=== PATIENT | male | born 1960 | race American Indian/Alaskan Native ===

== ENCOUNTER 2016-08-29 07:20 | Day surgery (SDC) | payer OTHER ==
[2016-08-28 10:57] VITALS: BMI 32.3
[2016-08-29 08:01] LABS: ADD MANUAL DIFF? NO
[2016-08-29 08:04] LABS: BASO # 0.15 K/mm3 (0.0-2.0); BASO % 1.8 % (0.0-3.0); EOS # 0.5 (0.0-0.7); EOS % 5.6 % (1.5-5.0); GRAN # 3.01 (1.4-6.5); GRAN % 36.7 % (50.0-68.0); HEMATOCRIT 40.1 % (42.0-52.0); LYMPH # 4.1 (1.2-3.4); LYMPH % 50.1 % (22.0-35.0); MEAN CELL VOLUME 81.5 fL (80.0-105.0); MEAN CORPUSCULAR HEMOGLOBIN 27.6 pg (25.0-35.0); MEAN CORPUSCULAR HGB CONC 33.9 g/dl (31.0-37.0); MEAN PLATELET VOLUME 10.1 fl (7.0-11.0); MONO # 0.5 (0.1-0.6); MONO % 5.8 % (1.0-6.0); PLATELET COUNT 173 10^3/uL (120.0-450.0); RED CELL DISTRIBUTION WIDTH 15.6 % (11.5-14.5); WHITE BLOOD COUNT 8.2 10^3/ul (4.5-11.0)
[2016-08-29 08:14] LABS: CALCIUM 9.3 mg/dL (8.4-10.5); INR 1.03 (0.93-1.08); PARTIAL THROMBOPLASTIN TIME 27.3 Seconds (23.7-30.8); POTASSIUM 3.8 mmol/L (3.6-5.0)
[2016-08-29] MEDS ORDERED: Lidocaine 2% Inj (20ml) ONE (10:27)
[2016-08-29] MEDS ORDERED: Midazolam 2 MG/2 ML VIAL ONE ×2 (10:28→10:58)
[2016-08-29] MEDS ORDERED: Iodixanol 320 MG/ML 200 ML BOTTLE IV ONE (10:28)
[2016-08-29] MEDS ORDERED: Iodixanol 320 MG/ML 100 ML BOTTLE IV ONE ×2 (10:28→11:27)
--- NOTE | 2016-08-29 12:56 | CARDCATH ---
PROCEDURE DATE: 08/29/2016 HISTORY: The patient is a 56-year-old male with multiple cardiac risk factors including smoking. He is status post multivessel percutaneous transluminal coronary angioplasty and stent in the past. Th e patient presents with chest pain with abnormal stress test. A cardiac catheterization was recommen ded. PROCEDURE: Left heart catheterization with coronary arteriography and left ventriculogram. This was followed by PTCA and stent of a 90% ramus intermedius. The right femoral artery was cannulated with a 6-Thai sheath. There were no complications. Findings on catheterization revealed a left ventricle that contracted normally. Estimated ejection f raction is 55%. His coronary anatomy revealed a left dominant circulation. The RCA was diffusely diseased with 80% stenosis in the proximal portion. The vessel was a small ves philippe. The left main artery was unremarkable. The LAD revealed a patent stent in its proximal portion. The circumflex artery revealed a patent stent. The ramus intermedius revealed a 95% stenosis in its proximal portion extending to a 70% stenosis jus t distally. All of his coronary arteries have diffuse atherosclerosis. The patient was started on intravenous Angiomax. Under fluoroscopic guide, a 3.5 guiding catheter was placed in the ostium of the left main artery. A n 0.014 ATW wire was used to cross the critical lesion in the ramus intermedius. A 2.0 balloon was utilized to predilate the lesions. A 2.5 x 18 mm drug-eluting stent was placed and deployed at 14 atmospheres of pressure in the ramus i ntermedius tandem lesions. Repeat coronary angiography revealed an excellent result with no residual stenosis and MELISSA 3 flow. The patient tolerated the procedure well. Angio-Seal was used to close the femoral artery site. In summary, the procedure was successful PTCA and stent of a 95% ramus intermedius lesion. Cardiac catheterization reveals patent stents in the left anterior descending and circumflex artery. The patient has a critical lesion in the nondominant RCA which was not manipulated because of the sma ll vessel size. Given these findings, the patient will need to remain on aspirin indefinitely and Plavix for at least 1 year. I have discussed with him in serious terms about his need to stop smoking. Bennett Segura MD cc: [phone] TT: 08/29/2016 12:55:46 rn
[2016-08-29] MEDS: Sodium Chloride 0.9% 1,000 ML IV SCH ×2 (13:34→23:00)
--- NOTE | 2016-08-29 15:11 | CP.PCM.HP ---
<Mike Vera - Last Filed: 08/29/16 21:32> History of Present Illness - History of Present Illness History of Present Illness: HPI: Patient is a 56yo male with past medical history of CAD s/p 3 stent placement, [place] (2006), HLD and BPH that presented for an elective outpatient cardiac catherization. Patient is currently s/p successful cardiac catherization with ISELA stent placement of a 95% ramus intermedius lesion. On 02/2017, patient underwent a stress test which revealed a fixed, apical, inferior and inferolateral defects. An echocardiogram from 12/01/15 revealed an LVEF of ~43% with mild concenntric LVH and global hypokinesis of the left ventricle (see full report). Patient denied chest pain, palpitations, SOB, abdominal pain, nausea, vomiting, focal weakness, numbness and tingling post procedure. He was admitted for extended observation post catherization. 12 point ROS as per HPI above, otherwise negative PMHx: CAD, [place] (2006), HLD, BPH PSHx: 3 stent placement ([id number]) Allergies: Penicillin Meds: Reviewed and as per chart Family Hx: Mother: Colon Ca; Father: CAD, [place]; Sister: lymphoma Social Hx: Tobacco use (~1/2ppd for over 15 yrs), social alcohol use; denies illicit drugs; PMD: Dr. Hills Present on Admission - Present on Admission Any Indicators Present on Admission: No Past Patient History - Tetanus Immunizations Tetanus Immunization: Unknown - Past Medical History & Family History Past Medical History?: Yes - Past Social History Smoking Status: Former Smoker Chewing Tobacco Use: No - CARDIAC Hx Pacemaker: No - PULMONARY Hx Chronic Obstructive Pulmonary Disease (COPD): Yes - NEUROLOGICAL Hx Paralysis: No - HEENT Hx HEENT Problems: No - RENAL Hx Chronic Kidney Disease: No - ENDOCRINE/METABOLIC Hx Endocrine Disorders: No - HEMATOLOGICAL/ONCOLOGICAL Hx Blood Transfusions: No - INTEGUMENTARY Hx Dermatological Problems: No - MUSCULOSKELETAL/RHEUMATOLOGICAL Hx Musculoskeletal Disorders: No - GASTROINTESTINAL Hx Gastrointestinal Disorders: No - GENITOURINARY/GYNECOLOGICAL Hx Genitourinary Disorders: No Hx Prostate Problems: Yes - PSYCHIATRIC Hx Emotional Abuse: No Hx Physical Abuse: No Hx Substance Use: No - SURGICAL HISTORY Hx Surgeries: Yes - ANESTHESIA Hx Anesthesia Reactions: No Hx Malignant Hyperthermia: No Meds Allergies/Adverse Reactions: Allergies Allergy/AdvReac Type Severity Reaction Status Date / Time Penicillins Allergy RASH Verified 08/29/16 08:06 Physical Exam - Constitutional Appears: Well, Non-toxic, No Acute Distress - Head Exam Head Exam: ATRAUMATIC, NORMAL INSPECTION, NORMOCEPHALIC - Eye Exam Eye Exam: EOMI, PERRL. absent: Conjunctival injection, Scleral icterus - ENT Exam ENT Exam: Mucous Membranes Moist - Neck Exam Neck exam: Positive for: Normal Inspection - Respiratory Exam Respiratory Exam: Clear to Auscultation Bilateral, NORMAL BREATHING PATTERN. absent: Rales, Rhonchi, Wheezes - Cardiovascular Exam Cardiovascular Exam: RRR, +S1, +S2. absent: Gallop, JVD, Rubs - GI/Abdominal Exam GI & Abdominal Exam: Normal Bowel Sounds, Soft. absent: Distended, Guarding, Rebound, Rigid, Tenderness - Neurological Exam Neurological exam: Alert, Oriented x3 - Psychiatric Exam Psychiatric exam: Normal Affect, Normal Mood - Skin Skin Exam: Dry, Intact, Normal Color, Warm Results - Vital Signs Recent Vital Signs: Last Vital Signs Temp 97.5 F L 08/29/16 07:40 Pulse 60 08/29/16 14:50 Resp 17 08/29/16 14:50 BP 117/72 08/29/16 14:50 Pulse Ox 96 08/29/16 07:40 - Labs Result Diagrams: 08/29/16 07:50 08/29/16 07:50 Labs: Laboratory Results - last 24 hr 08/29/16 08/29/16 07:50 09:00 WBC 8.2 RBC 4.92 Hgb 13.6 L Hct 40.1 L MCV 81.5 MCH 27.6 MCHC 33.9 RDW 15.6 H Plt Count 173 MPV 10.1 Gran % 36.7 L Lymph % (Auto) 50.1 H [place] % (Auto) 5.8 Eos % (Auto) 5.6 H Baso % (Auto) 1.8 Gran # 3.01 Lymph # 4.1 H [place] # 0.5 Eos # 0.5 Baso # 0.15 PT 11.1 INR 1.03 APTT 27.3 Sodium 143 Potassium 3.8 Chloride 108 H Carbon Dioxide 24 Anion Gap 15 BUN 17 Creatinine 1.5 H Est GFR ( Amer) 59 Est GFR (Non-Af Amer) 49 Random Glucose 111 H Calcium 9.3 Blood Type A POSITIVE Blood Type Confirm A POSITIVE Antibody Screen Negative BBK History Checked No verified bt Assessment & Plan - Assessment and Plan (Free Text) Assessment: 56yo male with history of CAD s/p 3 stent placement, [place] (2006), HTN, HLD and BPH admitted for extended observation s/p successful cardiac catherization with ISELA placement of a 95% ramus intermedius lesion. Plan: 1. CAD -s/p PTCA with 1 ISELA placed; cardiac cath report reviewed -Per cath report, patient has a critical lesion in the nondominant RCA which was not manipulated because of the small vessel size -EKG reviewed -Continue metoprolol, ASA, plavix -Cardiology following - Dr. Segura 2. Hyperlipidemia -Continue lipitor 3. BPH -Flomax on hold Case discussed with attending physician - Date & Time Date: 08/29/16 Time: 21:06 <John Mack - Last Filed: 09/25/16 10:46> Results - Vital Signs Recent Vital Signs: Last Vital Signs Temp 94.5 F L 08/30/16 12:00 Pulse 76 08/30/16 12:00 Resp 18 08/30/16 12:00 BP 135/70 08/30/16 12:00 Pulse Ox 96 08/30/16 05:34 - Labs Result Diagrams: 08/30/16 06:55 08/30/16 06:30 Attending/Attestation - Attestation I have personally seen and examined this patient.: Yes I have fully participated in the care of the patient.: Yes I have reviewed all pertinent clinical information: Yes Notes (Text): 09/25/16 10:46 Medial record note done by resident after patient personally seen and examined by me. I have reviewed the chart and agree that the record accurately reflects my personal evaluation, data review, and course for the patient.
--- NOTE | 2016-08-29 15:24 | CARD ---
APPROVED REPORT EKG Measurement Heart [id number] <Conclusion> Sinus bradycardia Inferior infarct, age undetermined LVH by voltage STTW changes
[2016-08-30 05:35] VITALS: O2SAT 96
[2016-08-30 07:19] LABS: ADD MANUAL DIFF? NO
[2016-08-30 07:24] LABS: BASO % 1.4 % (0.0-3.0); EOS # 0.3 (0.0-0.7); EOS % 4.5 % (1.5-5.0); HEMATOCRIT 39.9 % (42.0-52.0); LYMPH # 2.8 (1.2-3.4); LYMPH % 39.1 % (22.0-35.0); MEAN CELL VOLUME 81.3 fL (80.0-105.0); MEAN CORPUSCULAR HEMOGLOBIN 27.3 pg (25.0-35.0); MEAN CORPUSCULAR HGB CONC 33.6 g/dl (31.0-37.0); MEAN PLATELET VOLUME 10.7 fl (7.0-11.0); MONO # 0.4 (0.1-0.6); PLATELET COUNT 172 10^3/uL (120.0-450.0); RED CELL DISTRIBUTION WIDTH 15.4 % (11.5-14.5); WHITE BLOOD COUNT 7.1 10^3/ul (4.5-11.0)
[2016-08-30 07:40] LABS: BLOOD UREA NITROGEN 16 mg/dL (7-21); CALCIUM 8.8 mg/dL (8.4-10.5); CARBON DIOXIDE 23 mmol/L (21-33); CHLORIDE 108 mmol/L (98-107); GFR AFRICAN-AMERICAN > 60; GLUCOSE,RANDOM 102 mg/dL (70-110); POTASSIUM 4.1 mmol/L (3.6-5.0); SODIUM 139 mmol/L (132-148)
[2016-08-30] MEDS: Sodium Chloride 0.9% 1,000 ML IV SCH (08:15)
--- NOTE | 2016-08-30 09:36 | PN ---
DATE: 08/30/2016 The patient is chest pain free. Blood pressure is 122/72, the heart rate is in the 60s. NECK: Negative JVD. LUNGS: Without rales. HEART: Reveals S1, S2. EXTREMITIES: Without edema. The right groin site is stable. Hemoglobin is 13.4, BUN and creatinine are unremarkable. IMPRESSION: 1. Status post percutaneous transluminal coronary angioplasty and stent of the ramus intermedius with a drug-eluting stent. 2. Multivessel coronary artery disease. 3. Chronic obstructive pulmonary disease. 4. Hypercholesterolemia. 5. Hypertension. Given these findings, the patient is stable for discharge. Followup and instructions have been given to the patient in detail. I have discussed a smoke reduction program with the patient. The patient is agreeable to a nicotine patch. Followup and instructions have been given to the patient in detail. Bennett Segura MD cc: [phone] TT: 08/30/2016 09:36:23 Confirmation # [id number] Dictation # [id number] dana
--- NOTE | 2016-08-30 10:16 | CP.PCM.DIS ---
<Mike Vera - Last Filed: 08/30/16 11:18> Provider - Provider Attending physician: John Mack MD Primary care physician: Jose Hills MD Consults: Cardiology - Dr. Segura Time Spent in preparation of Discharge (in minutes): 30 Hospital Course - Lab Results Lab Results: Most Recent Lab Values WBC 7.1 10^3/ul (4.5-11.0) 08/30/16 06:55 RBC 4.91 10^6/uL (3.5-6.1) 08/30/16 06:55 Hgb 13.4 gm/dL (14.0-18.0) L 08/30/16 06:55 Hct 39.9 % (42.0-52.0) L 08/30/16 06:55 MCV 81.3 fL (80.0-105.0) 08/30/16 06:55 MCH 27.3 pg (25.0-35.0) 08/30/16 06:55 MCHC 33.6 g/dl (31.0-37.0) 08/30/16 06:55 RDW 15.4 % (11.5-14.5) H 08/30/16 06:55 Plt Count 172 10^3/uL (120.0-450.0) 08/30/16 06:55 MPV 10.7 fl (7.0-11.0) 08/30/16 06:55 Gran % 49.0 % (50.0-68.0) L 08/30/16 06:55 Lymph % (Auto) 39.1 % (22.0-35.0) H 08/30/16 06:55 [place] % (Auto) 6.0 % (1.0-6.0) 08/30/16 06:55 Eos % (Auto) 4.5 % (1.5-5.0) 08/30/16 06:55 Baso % (Auto) 1.4 % (0.0-3.0) 08/30/16 06:55 Gran # 3.50 (1.4-6.5) 08/30/16 06:55 Lymph # 2.8 (1.2-3.4) 08/30/16 06:55 [place] # 0.4 (0.1-0.6) 08/30/16 06:55 Eos # 0.3 (0.0-0.7) 08/30/16 06:55 Baso # 0.10 K/mm3 (0.0-2.0) 08/30/16 06:55 PT 11.1 Seconds (9.9-11.8) 08/29/16 07:50 INR 1.03 (0.93-1.08) 08/29/16 07:50 APTT 27.3 Seconds (23.7-30.8) 08/29/16 07:50 Sodium 139 mmol/L (132-148) 08/30/16 06:30 Potassium 4.1 mmol/L (3.6-5.0) 08/30/16 06:30 Chloride 108 mmol/L (98-107) H 08/30/16 06:30 Carbon Dioxide 23 mmol/L (21-33) 08/30/16 06:30 Anion Gap 12 (10-20) 08/30/16 06:30 BUN 16 mg/dL (7-21) 08/30/16 06:30 Creatinine 1.3 mg/dL (0.5-1.4) 08/30/16 06:30 Est GFR ( Amer) > 60 08/30/16 06:30 Est GFR (Non-Af Amer) 58 08/30/16 06:30 Random Glucose 102 mg/dL (70-110) 08/30/16 06:30 Calcium 8.8 mg/dL (8.4-10.5) 08/30/16 06:30 Blood Type A POSITIVE 08/29/16 07:50 Blood Type Confirm A POSITIVE 08/29/16 09:00 Antibody Screen Negative 08/29/16 07:50 BBK History Checked No verified bt 08/29/16 07:50 - Hospital Course Hospital Course: Patient is a 56yo male with past medical history of CAD s/p 3 stent placement, [place] (2007), HLD and BPH that presented for an elective outpatient cardiac catherization. Patient underwent a successful cardiac catherization with ISELA stent placement of a 95% ramus intermedius lesion. On 08/26/2016, patient underwent a stress test which revealed a fixed, apical, inferior and inferolateral defects. An echocardiogram from 12/01/15 revealed an LVEF of ~43% with mild concenntric LVH and global hypokinesis of the left ventricle (see full report). Patient denied chest pain, palpitations, SOB, abdominal pain, nausea, vomiting, focal weakness, numbness and tingling post procedure. He was admitted for extended observation post catherization. Patient had no post- operative complications and was instructed to follow up with his primary doctor , Dr. Hills within 1-2 weeks of discharge as well as his engravings polisher, Dr. Segura within 1-2 weeks of discharge. He was also instructed to fill any medications prescribed to him and take as directed. Patient expressed understanding, had all questions answered and was agreeable to discharge and follow up. - Date & Time of H&P Date of H&P: 08/29/16 Discharge Exam - Head Exam Head Exam: ATRAUMATIC, NORMAL INSPECTION, NORMOCEPHALIC - Eye Exam Eye Exam: EOMI, PERRL - Respiratory Exam Respiratory Exam: Clear to PA & Lateral, UNREMARKABLE. absent: Rales, Rhonchi, Wheezes - Cardiovascular Exam Cardiovascular Exam: RRR, +S1, +S2. absent: Diastolic murmur, Rubs, Systolic Murmur - GI/Abdominal Exam GI & Abdominal Exam: Normal Bowel Sounds, Soft. absent: Distended, Firm, Guarding, Rebound, Rigid, Tenderness - Extremities Exam Extremities exam: normal inspection - Neurological Exam Neurological exam: Alert, CN II-XII Intact, Normal Gait, Oriented x3 - Psychiatric Exam Psychiatric exam: Normal Affect, Normal Mood - Skin Skin Exam: Dry, Intact, Normal Color, Warm Discharge Plan - Discharge Medications Prescriptions: Nicotine 14 mg/24 hr [Nicotine Transdermal System] 1 patch TD DAILY #30 patch Pravastatin Sodium [Pravachol] 40 mg PO DAILY #30 tablet - Follow Up Plan Condition: GOOD Disposition: HOME/ ROUTINE Instructions: Angina (DC), Coronary Artery Disease (DC), Chest Pain (DC), How to Stop Smoking (DC), Cigarette Smoking and Your Health (GEN), Chronic Hypertension (DC), Heart Catheterization (DC), Coronary Intravascular Stent Placement (DC) Additional Instructions: 1. Follow up with your primary doctor, Dr. Hills within 1-2 weeks of discharge. 2. Follow up with your engravings polisher, Dr. Segura within 1-2 weeks of discharge. 3. Fill any medications prescribed to you and take as directed. 4. Return to the emergency room should your condition worsen or change in severity/quality. Referrals: Jose Hills MD [Primary Care Provider] - <John Mack - Last Filed: 09/25/16 10:47> Provider - Provider Attending physician: John Mack MD Primary care physician: Jose Hills MD Hospital Course - Lab Results Lab Results: Most Recent Lab Values WBC 7.1 10^3/ul (4.5-11.0) 08/30/16 06:55 RBC 4.91 10^6/uL (3.5-6.1) 08/30/16 06:55 Hgb 13.4 gm/dL (14.0-18.0) L 08/30/16 06:55 Hct 39.9 % (42.0-52.0) L 08/30/16 06:55 MCV 81.3 fL (80.0-105.0) 08/30/16 06:55 MCH 27.3 pg (25.0-35.0) 08/30/16 06:55 MCHC 33.6 g/dl (31.0-37.0) 08/30/16 06:55 RDW 15.4 % (11.5-14.5) H 08/30/16 06:55 Plt Count 172 10^3/uL (120.0-450.0) 08/30/16 06:55 MPV 10.7 fl (7.0-11.0) 08/30/16 06:55 Gran % 49.0 % (50.0-68.0) L 08/30/16 06:55 Lymph % (Auto) 39.1 % (22.0-35.0) H 08/30/16 06:55 [place] % (Auto) 6.0 % (1.0-6.0) 08/30/16 06:55 Eos % (Auto) 4.5 % (1.5-5.0) 08/30/16 06:55 Baso % (Auto) 1.4 % (0.0-3.0) 08/30/16 06:55 Gran # 3.50 (1.4-6.5) 08/30/16 06:55 Lymph # 2.8 (1.2-3.4) 08/30/16 06:55 [place] # 0.4 (0.1-0.6) 08/30/16 06:55 Eos # 0.3 (0.0-0.7) 08/30/16 06:55 Baso # 0.10 K/mm3 (0.0-2.0) 08/30/16 06:55 PT 11.1 Seconds (9.9-11.8) 08/29/16 07:50 INR 1.03 (0.93-1.08) 08/29/16 07:50 APTT 27.3 Seconds (23.7-30.8) 08/29/16 07:50 Sodium 139 mmol/L (132-148) 08/30/16 06:30 Potassium 4.1 mmol/L (3.6-5.0) 08/30/16 06:30 Chloride 108 mmol/L (98-107) H 08/30/16 06:30 Carbon Dioxide 23 mmol/L (21-33) 08/30/16 06:30 Anion Gap 12 (10-20) 08/30/16 06:30 BUN 16 mg/dL (7-21) 08/30/16 06:30 Creatinine 1.3 mg/dL (0.5-1.4) 08/30/16 06:30 Est GFR ( Amer) > 60 08/30/16 06:30 Est GFR (Non-Af Amer) 58 08/30/16 06:30 Random Glucose 102 mg/dL (70-110) 08/30/16 06:30 Calcium 8.8 mg/dL (8.4-10.5) 08/30/16 06:30 Blood Type A POSITIVE 08/29/16 07:50 Blood Type Confirm A POSITIVE 08/29/16 09:00 Antibody Screen Negative 08/29/16 07:50 BBK History Checked No verified bt 08/29/16 07:50 Attending/Attestation - Attestation I have personally seen and examined this patient.: Yes I have fully participated in the care of the patient.: Yes I have reviewed all pertinent clinical information, including history, physical exam and plan: Yes Notes (Text): 09/25/16 10:47 Medial record note done by resident after patient personally seen and examined by me. I have reviewed the chart and agree that the record accurately reflects my personal evaluation, data review, and course for the patient.
[2016-08-30 12:01] VITALS: BP 135/70; PULSE 76; RESP 18; TEMP 94.5
== END 2016-08-30 12:03 | disposition home or self-care (01) ==
LOC: CATH 07:20 → 2RSO 12:03 → CATH 08-30 12:03
PROVIDERS: ATTEND Internal Medicine
DX: I25.10 Atherosclerotic heart disease of native coronary artery without angina pectoris (principal); E78.00 Pure hypercholesterolemia, unspecified; I10 Essential (primary) hypertension; J44.9 Chronic obstructive pulmonary disease, unspecified; R94.39 Abnormal result of other cardiovascular function study; R07.9 Chest pain, unspecified; N40.0 Benign prostatic hyperplasia without lower urinary tract symptoms; I25.2 Old myocardial infarction; Z95.5 Presence of coronary angioplasty implant and graft; Z88.0 Allergy status to penicillin; Z80.0 Family history of malignant neoplasm of digestive organs; Z80.7 Family history of other malignant neoplasms of lymphoid, hematopoietic and related tissues; Z82.49 Family history of ischemic heart disease and other diseases of the circulatory system; Z72.0 Tobacco use; E78.5 Hyperlipidemia, unspecified
CPT/HCPCS: 36415 ×2; 80048 ×2; 85025 ×2; 85610; 85730; 86850; 86900; 93005; 93458; 99152; C1725; C1760; C1769 ×2; C1874; C1887; C2629; C9600; J0583; J1644; J2250; J3010; J7040 ×3; Q9967

== ENCOUNTER 2017-09-30 12:22 | Observation (INO) | payer OTHER ==
[2017-09-30 12:34] VITALS: BMI 28.8
[2017-09-30] MEDS ORDERED: Nitroglycerin 2% Ointment Foilpak UD TOP STA (12:41)
[2017-09-30 12:54] LABS: BASO # 0.12 K/mm3 (0.0-2.0); BASO % 1.1 % (0.0-3.0); EOS # 0.4 (0.0-0.7); EOS % 3.8 % (1.5-5.0); GRAN # 4.11 (1.4-6.5); GRAN % 38.2 % (50.0-68.0); LYMPH # 5.6 (1.2-3.4); LYMPH % 51.5 % (22.0-35.0); MEAN CELL VOLUME 81.1 fl (80.0-105.0); MEAN CORPUSCULAR HEMOGLOBIN 27.5 pg (25.0-35.0); MEAN CORPUSCULAR HGB CONC 33.9 g/dl (31.0-37.0); MONO # 0.6 (0.1-0.6); MONO % 5.4 % (1.0-6.0); RBC 5.09 10^6/uL (3.5-6.1); RED CELL DISTRIBUTION WIDTH 15.1 % (11.5-14.5); WHITE BLOOD COUNT 10.8 10^3/ul (4.5-11.0)
[2017-09-30 13:07] LABS: BLOOD UREA NITROGEN 22 mg/dL (7-21); GFR NON-AFRICAN AMERICAN 53
[2017-09-30 13:08] LABS: ALB/GLOB RATIO 1.4 (1.1-1.8); ALBUMIN 4.5 g/dL (3.0-4.8); ALT/SGPT 31 U/L (7-56); AST/SGOT 26 U/L (17-59); CALCIUM 9.7 mg/dL (8.4-10.5); LIPASE 178 U/L (23-300)
[2017-09-30 13:18] LABS: TROPONIN I < 0.01 ng/mL
--- NOTE | 2017-09-30 13:22 | ED PDOC ---
Arrival/HPI - General Chief Complaint: Chest Pain Time Seen by Provider: 09/30/17 12:35 Historian: Patient - History of Present Illness Narrative History of Present Illness (Text): 09/30/17 13:19 A 57 year old male, whose past medical history includes CAD s/p 3 stent placement, [place] (2006), HLD and benign prostatic hyperplasia, presents to the emergency department complaining of chest pain that started at around 10 this morning. He states that the pain is still prevalent, but improving. He also complains of associated shortness of breath, which has resolved since. The patient notes that he took his Aspirin and Plavix this morning. The patient denies fevers, chills, headache, dizziness, diaphoresis, dyspnea on exertion, cough, abdominal pain, nausea, vomiting, diarrhea, back pain, neck pain, urinary /bowel changes, or any other complaint. PMD: Dr. Mack Time/Duration: Other (This Morning (10 AM)) Symptom Onset: Sudden Symptom Course: Improving Activities at Onset: Rest, Light Context: Home Past Medical History - Provider Review Nursing Documentation Reviewed: Yes - Tetanus Immunization Tetanus Immunization: Unknown - Cardiac Hx Cardiac Disorders: Yes Hx Hypertension: Yes Hx Pacemaker: No - Pulmonary Hx Chronic Obstructive Pulmonary Disease (COPD): Yes - Neurological Hx Paralysis: No - HEENT Hx HEENT Disorder: No - Renal Hx Renal Disorder: No - Endocrine/Metabolic Hx Endocrine Disorders: No - Hematological/Oncological Hx Blood Transfusions: No - Integumentary Hx Dermatological Disorder: No - Musculoskeletal/Rheumatological Hx Musculoskeletal Disorders: No - Gastrointestinal Hx Gastrointestinal Disorders: No - Genitourinary/Gynecological Hx Genitourinary Disorders: No Hx Prostate Problems: Yes - Psychiatric Hx Emotional Abuse: No Hx Physical Abuse: No Hx Substance Use: No - Surgical History Hx Cardiac Catheterization: Yes Hx Coronary Stent: Yes (x4) - Anesthesia Hx Anesthesia: Yes Hx Anesthesia Reactions: No Hx Malignant Hyperthermia: No - Suicidal Assessment Feels Threatened In Home Enviroment: No Family/Social History - Physician Review Nursing Documentation Reviewed: Yes Family/Social History: No Known Family HX Smoking Status: Former Smoker Hx Alcohol Use: Yes (OCCASIONAL) Hx Substance Use: No Allergies/Home Meds Allergies/Adverse Reactions: Allergies Penicillins Allergy (Verified 09/30/17 12:38) RASH Home Medications: Home Meds Medication Instructions Recorded Confirmed Clopidogrel [Plavix] 75 mg PO DAILY 08/26/16 09/30/17 Tamsulosin [Flomax] 0.4 mg PO DAILY 08/26/16 09/30/17 Aspirin [Ecotrin] 81 mg PO DAILY 08/28/16 09/30/17 Cholecalciferol (Vitamin D3) 2,000 unit PO DAILY 08/28/16 09/30/17 [Vitamin D3] [place]-3 Fatty Acids/Fish Oil [Fish 1,000 mg PO DAILY 08/28/16 09/30/17 Oil 1,000 mg Capsule] Metoprolol Tartrate 50 mg PO BID 09/30/17 09/30/17 Review of Systems - Physician Review All systems were reviewed & negative as marked: Yes - Review of Systems Constitutional: absent: Fevers, Night Sweats Respiratory: SOB. absent: Cough Cardiovascular: Chest Pain. absent: WHALEN Gastrointestinal: absent: Abdominal Pain, Stool Changes, Diarrhea, Nausea, Vomiting Genitourinary Male: absent: Urinary Output Changes Musculoskeletal: absent: Back Pain, Neck Pain Neurological: absent: Headache, Dizziness Physical Exam Vital Signs Reviewed: Yes Vital Signs Temp Pulse Resp BP Pulse Ox 09/30/17 12:44 97.7 F 76 17 125/72 98 Temperature: Afebrile Blood Pressure: Normal Pulse: Regular Respiratory Rate: Normal Appearance: Positive for: Well-Appearing, Non-Toxic, Comfortable Pain Distress: None Mental Status: Positive for: Alert and Oriented X 3 - Systems Exam Head: Present: Atraumatic, Normocephalic Pupils: Present: PERRL Extroacular Muscles: Present: EOMI Conjunctiva: Present: Normal Mouth: Present: Moist Mucous Membranes Neck: Present: Normal Range of Motion Respiratory/Chest: Present: Clear to Auscultation, Good Air Exchange. No: Respiratory Distress, Accessory Muscle Use Cardiovascular: Present: Regular Rate and Rhythm, Normal S1, S2. No: Murmurs Abdomen: No: Tenderness, Distention, Peritoneal Signs Back: Present: Normal Inspection Upper Extremity: Present: Normal Inspection. No: Cyanosis, Edema Lower Extremity: Present: Normal Inspection. No: Edema Neurological: Present: GCS=15, CN II-XII Intact, Speech Normal Skin: Present: Warm, Dry, Normal Color. No: Rashes Psychiatric: Present: Alert, Oriented x 3, Normal Insight, Normal Concentration Medical Decision Making ED Course and Treatment: 09/30/17 13:23 Impression: A 57 year old male presents to the emergency department for a complaint of chest pain with associated shortness of breath this morning. Plan: -- EKG -- Chest X-ray -- Labs -- Urinalysis -- Nitroglycerin -- Reassess and disposition Progress Notes: CHEST X-RAY Dictator : Brandan Bowers MD Report Date : 09/30/2017 13:24:02 IMPRESSION: No active disease. 09/30/17 13:39 EKG shows normal sinus rhythm rate approximately 70 with Q waves inferiorly and inverted T waves with Q waves laterally 09/30/17 14:44 Pain is better post-nitroglycerin. - Lab Interpretations Lab Results: 09/30/17 12:40 09/30/17 12:40 Lab Results 09/30/17 12:40: PT 12.4, INR 1.09 H, APTT 28.5 09/30/17 12:40: Sodium 147, Potassium 3.9, Chloride 109 H, Carbon Dioxide 24, Anion Gap 18, BUN 22 H, Creatinine 1.4, Est GFR ( Amer) > 60, Est GFR ( Non-Af Amer) 53, Random Glucose 121 H, Calcium 9.7, Magnesium 1.9, Total Bilirubin 0.3, AST 26, ALT 31, Alkaline Phosphatase 88, Lactate Dehydrogenase 460, Total Creatine Kinase 519 H, CK-MB (CK-2) 4.3 H, CK-MB (CK-2) % Cancelled, Troponin I < 0.01, Total Protein 7.7, Albumin 4.5, Globulin 3.2, Albumin/ Globulin Ratio 1.4, Lipase 178 09/30/17 12:40: WBC 10.8 D, RBC 5.09, Hgb 14.0, Hct 41.3 L, MCV 81.1, MCH 27.5 , MCHC 33.9, RDW 15.1 H, Plt Count 193, MPV 10.0, Gran % 38.2 L, Lymph % (Auto) 51.5 H, [place] % (Auto) 5.4, Eos % (Auto) 3.8, Baso % (Auto) 1.1, Gran # 4.11, Lymph # (Auto) 5.6 H, [place] # (Auto) 0.6, Eos # (Auto) 0.4, Baso # (Auto) 0.12 I have reviewed the lab results: Yes - RAD Interpretation Radiology Orders: 09/30/17 12:42 CHEST PORTABLE [RAD] Stat - EKG Interpretation Interpreted by ED Physician: Yes Type: 12 lead EKG - Medication Orders Current Medication Orders: Aspirin (Ecotrin) 81 mg PO DAILY DIONNA Cholecalciferol (Vitamin D) 2,000 intlu PO DAILY DIONNA Clopidogrel Bisulfate (Plavix) 75 mg PO DAILY DIONNA Enoxaparin Sodium (Lovenox) 100 mg SC Q12H DIONNA PRN Reason: Protocol Metoprolol Tartrate (Lopressor) 50 mg PO BID DIONNA [id number] Ethyl Esters (Lovaza) 1 gm PO DAILY DIONNA Tamsulosin HCl (Flomax) 0.4 mg PO DAILY DIONNA Discontinued Medications Nitroglycerin (Nitro-Bid 2% Oint) 1 ea TOP STAT STA Stop: 09/30/17 12:42 Last Admin: 09/30/17 13:06 Dose: 1 ea - Scribe Statement The provider has reviewed the documentation as recorded by the Kaylaibkelly Marshall Provider Scribe Attestation: All medical record entries made by the Scribe were at my direction and personally dictated by me. I have reviewed the chart and agree that the record accurately reflects my personal performance of the history, physical exam, medical decision making, and the department course for this patient. I have also personally directed, reviewed, and agree with the discharge instructions and disposition. Disposition/Present on Arrival - Present on Arrival Any Indicators Present on Arrival: No History of DVT/PE: No History of Uncontrolled Diabetes: No Urinary Catheter: No History of Decub. Ulcer: No History Surgical Site Infection Following: None - Disposition Have Diagnosis and Disposition been Completed?: Yes Diagnosis: Chest pain Disposition: HOSPITALIZED Disposition Time: 13:49 Patient Plan: Observation, Telemetry Patient Problems: Current Active Problems Problem Status Onset Chest pain Acute Condition: GOOD
[2017-09-30 13:24] LABS: CK-MB 4.3 ng/mL (0.0-3.6)
--- NOTE | 2017-09-30 13:25 | RAD ---
HISTORY: cp COMPARISON: 11/30/2015 FINDINGS: LUNGS: No active pulmonary disease. PLEURA: No significant pleural effusion identified, no pneumothorax apparent. CARDIOVASCULAR: Normal. OSSEOUS STRUCTURES: No significant abnormalities. VISUALIZED UPPER ABDOMEN: Normal. OTHER FINDINGS: None. IMPRESSION: No active disease.
[2017-09-30 13:38] LABS: INR 1.09 (0.93-1.08); PARTIAL THROMBOPLASTIN TIME 28.5 Seconds (25.1-36.5); PROTHROMBIN TIME 12.4 SECONDS (9.4-12.5)
--- NOTE | 2017-09-30 14:28 | CP.PCM.HP ---
<Joey Salas - Last Filed: 09/30/17 15:11> History of Present Illness - History of Present Illness History of Present Illness: 57 year old male with a past medical history significant for multivessel CAD ( with stent placement in LAD in 2006 and Ramus Intermedius in 08/2016) dyslipidemia, Benign Prostatic Hyperplasia, and a 15 pack year history of smoking (quit one year ago) who presents with substernal chest pain at 10:00 AM today. He reports the pain is pressure like, non-radiating, associated with some difficulty with air intake, without nausea or diapohoresis or worsened with exertion. He reports the pain occurred shortly after he lugged down his Aspirin, PLavix, Pravastatin, and Metoprolol all at once at 10:00. He reports he normally takes his medications after a meal but wasn't able to today. He reports that he drank more water after the chest pain developed, and some gingerale which did not exactly improve his symptoms. He reports the first time he had an VT he had similar symptoms and disregarded it to his regret ion 2006. In the ED, he reports that his chest pain subsided after the topical nitroglycerin patch was applied. He denies any fever, chills, diaphoresis, nausea, vomiting, alcohol, or illicit drug use. 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 John Mack Present on Admission - Present on Admission Any Indicators Present on Admission: No Review of Systems - Review of Systems All systems: reviewed and no additional remarkable complaints except (as per HPI ) Past Patient History - Tetanus Immunizations Tetanus Immunization: Unknown - Past Medical History & Family History Past Medical History?: Yes - Past Social History Smoking Status: Former Smoker - CARDIAC Hx Cardiac Disorders: Yes Hx Hypertension: Yes Hx Pacemaker: No - PULMONARY Hx Chronic Obstructive Pulmonary Disease (COPD): Yes - NEUROLOGICAL Hx Paralysis: No - HEENT Hx HEENT Problems: No - RENAL Hx Chronic Kidney Disease: No - ENDOCRINE/METABOLIC Hx Endocrine Disorders: No - HEMATOLOGICAL/ONCOLOGICAL Hx Blood Transfusions: No - INTEGUMENTARY Hx Dermatological Problems: No - MUSCULOSKELETAL/RHEUMATOLOGICAL Hx Musculoskeletal Disorders: No - GASTROINTESTINAL Hx Gastrointestinal Disorders: No - GENITOURINARY/GYNECOLOGICAL Hx Genitourinary Disorders: No Hx Prostate Problems: Yes - PSYCHIATRIC Hx Emotional Abuse: No Hx Physical Abuse: No Hx Substance Use: No - SURGICAL HISTORY Hx Cardiac Catheterization: Yes Hx Coronary Stent: Yes (x4) - ANESTHESIA Hx Anesthesia: Yes Hx Anesthesia Reactions: No Hx Malignant Hyperthermia: No Meds Allergies/Adverse Reactions: Allergies Allergy/AdvReac Type Severity Reaction Status Date / Time Penicillins Allergy RASH Verified 09/30/17 12:38 flu vaccine Allergy NAUSEA Uncoded 09/30/17 16:47 Physical Exam - Constitutional Appears: Non-toxic - Head Exam Head Exam: ATRAUMATIC, NORMOCEPHALIC - Eye Exam Eye Exam: EOMI, Normal appearance - ENT Exam ENT Exam: Mucous Membranes Moist - Neck Exam Neck exam: Positive for: Normal Inspection Additional comments: no carotid bruits auscultated - Respiratory Exam Respiratory Exam: NORMAL BREATHING PATTERN. absent: Accessory Muscle Use - Cardiovascular Exam Cardiovascular Exam: RRR, +S1, +S2 - GI/Abdominal Exam GI & Abdominal Exam: Normal Bowel Sounds, Soft. absent: Guarding - Extremities Exam Extremities exam: Positive for: normal inspection. Negative for: calf tenderness - Neurological Exam Neurological exam: Alert, CN II-XII Intact, Oriented x3 - Psychiatric Exam Psychiatric exam: Normal Affect, Normal Mood - Skin Skin Exam: Dry, Intact, Normal Color, Warm Results - Vital Signs Recent Vital Signs: Last Vital Signs Temp 97.7 F 09/30/17 12:44 Pulse 76 09/30/17 12:44 Resp 17 09/30/17 12:44 BP 125/72 09/30/17 12:44 Pulse Ox 98 09/30/17 12:44 - Labs Result Diagrams: 09/30/17 12:40 09/30/17 12:40 - EKG Data EKG Interpreted by: Myself - EKG Data EKG comments: no ST or T wave changes significant for acute VT; there is evidence of old infarct in the inferior and lateral leads. Assessment & Plan - Assessment and Plan (Free Text) Assessment: 57 year old male with a past medical history of CAD with stent placement, BPH, and history of smoking who presents with chest pain of two hours duration that improved with topical Nitroglycerin. Plan: 1) Unstable Angina in a patient with known CAD - Chest X-ray shows no acute disease - EKG shows old infarct in inferior and lateral leads - Lovenox 100 mg q12h SC - Dr. Segura, fulling machine operator consulted - TSH, Lipid panel, high sensitivity CRP, and HgA1c ordered - Troponin I ordered q6h - NPO after midnight except for medications - Metoprolol Tartarate 50 mg BID - Aspirin 81 mg - Plavix 75 PO daily - Patient already on Pravastatin, will check lipid panel and consider high intensity - Fish oil continue 2) CKD - Monitor with serial CMP/BMP - gentle hydration with NS 60 ml/hr 3) BPH - Tamsulosin 0.4 mg PO daily 4) GI/DVT prophylaxis - Famotidine 20 mg - Lovenox therapeutic dose Case reviewed and discussed with Dr. Gallardo, attending physician - Date & Time Date: 09/30/17 Time: 14:55 <Siva Gallardo - Last Filed: 10/01/17 14:37> Results - Vital Signs Recent Vital Signs: Last Vital Signs Temp 98.5 F 10/01/17 05:54 Pulse 61 10/01/17 09:19 Resp 18 10/01/17 09:00 BP 121/70 10/01/17 09:19 Pulse Ox 99 10/01/17 09:00 - Labs Result Diagrams: 09/30/17 12:40 09/30/17 12:40 Labs: Laboratory Results - last 24 hr 09/30/17 09/30/17 09/30/17 18:48 18:48 18:48 Hemoglobin A1c 5.9 Troponin I < 0.01 Triglycerides 201 H Cholesterol 186 LDL Cholesterol Direct 122 HDL Cholesterol 29 TSH 3rd Generation 2.03 Urine Color Urine Appearance Urine pH Ur Specific [place] Urine Protein Urine Glucose (UA) Urine Ketones Urine Blood Urine Nitrate Urine Bilirubin Urine Urobilinogen Ur Leukocyte Esterase 09/30/17 09/30/17 20:22 23:16 Hemoglobin A1c Troponin I < 0.01 Triglycerides Cholesterol LDL Cholesterol Direct HDL Cholesterol TSH 3rd Generation Urine Color Yellow Urine Appearance Clear Urine pH 6.0 Ur Specific [place] 1.015 Urine Protein Negative Urine Glucose (UA) Negative Urine Ketones Negative Urine Blood Negative Urine Nitrate Negative Urine Bilirubin Negative Urine Urobilinogen 0.2 Ur Leukocyte Esterase Negative Attending/Attestation - Attestation I have personally seen and examined this patient.: Yes I have fully participated in the care of the patient.: Yes I have reviewed all pertinent clinical information: Yes Notes (Text): 10/01/17 14:32 Medical record note made by the resident after discussion with my direction and input after the patient was personally seen and examined by me. I have reviewed the chart and agree that the record accurately reflects by personal performance of the history, physical exam, data review, and medical decision-making, in the course for the patient. I have also personally directed the plan of care. 57 year old male with a past medical history of CAD ,SP stent placement in LAD in 2006 and Ramus Intermedius in 08/2016) dyslipidemia, Benign Prostatic Hyperplasia, is admitted with chest pain, improved with topical nitropaste in ER.EKG is negative for any new changes compared to previous EKG.Patient is currently pain free.Patient will be admitted to the hospital in telemetry.We will continue ASA,Plavix, metoprolol and Paravastatin.We will get serial troponins and cardiology consult. Management plan was discussed in detail with patient. Education was provided.
--- NOTE | 2017-09-30 14:57 | CARD ---
APPROVED REPORT EKG Measurement Heart [id number] <Conclusion> Normal sinus rhythm Lateral infarct, age undetermined Inferior infarct, age undetermined Abnormal ECG
[2017-09-30] MEDS ORDERED: Sodium Chloride 0.9% 1,000 ML IV SCH (15:00)
[2017-09-30] MEDS: Enoxaparin 100 mg Syringe SC SCH (15:23)
[2017-09-30] MEDS ORDERED: Pneumococcal 23-Valent Vaccine IM ONE (17:10)
[2017-09-30 19:10] LABS: HDL CHOLESTEROL 29 mg/dL (29-60)
[2017-09-30 19:21] LABS: LDL CHOLESTEROL 122 mg/dL (0-129)
[2017-09-30 19:32] LABS: TROPONIN I < 0.01 ng/mL
[2017-09-30 20:42] LABS: URINE BILIRUBIN NEGATIVE (NEGATIVE); URINE BLOOD NEGATIVE (NEGATIVE); URINE GLUCOSE (UA) NEGATIVE (NEGATIVE); URINE LEUKOCYTE ESTERASE NEGATIVE Leu/uL (NEGATIVE); URINE PROTEIN NEGATIVE mg/dL (<30 mg/dL); URINE UROBILINOGEN 0.2 E.U./dL (<1 E.U./dL)
[2017-09-30 20:44] LABS: URINE APPEARANCE CLEAR (CLEAR); URINE COLOR YELLOW (YELLOW)
[2017-10-01] MEDS: Enoxaparin 100 mg Syringe SC SCH (02:48)
[2017-10-01 05:55] VITALS: TEMP 98.5; O2SAT 99
--- NOTE | 2017-10-01 08:20 | CP.PCM.PCO ---
Physician Communication Note - Physician Communication Note Physician Communication Note: Patient defers stress test today given left leg injury, prefers 10/03.
[2017-10-01] MEDS: Omega-3-Acid Ethyl Esters 1 GM Cap PO SCH ×2 (09:19→09:20)
[2017-10-01] MEDS: Cholecalciferol 1,000 INTLU TAB PO SCH ×2 (09:19→09:22)
[2017-10-01 09:20] VITALS: BP 121/70; PULSE 61
[2017-10-01] MEDS ORDERED: Non Formulary Medication (Cholecalciferol (Vitamin D3) [Vitamin D3] 2,000 UNIT) PO SCH (10:00)
--- NOTE | 2017-10-01 10:34 | CON ---
DATE: 10/01/2017 CARDIOLOGY CONSULTATION HISTORY: The patient is a 57-year-old male, who presents with an episode of atypical chest pain, which is all resolved. The patient's past medical history includes multivessel PTCA in the past. This was performed approximately 1 year ago. He suffers from hypercholesterolemia and borderline hypertension. No chest pain now. No diabetes mellitus. SOCIAL HISTORY: The patient does not smoke. REVIEW OF SYSTEMS: A 14-point review of systems is reviewed in detail. No cardiac symptomatology is noted. PHYSICAL EXAMINATION: VITAL SIGNS: Blood pressure 105/67, the heart rates in the 60s. NECK: Negative JVD. LUNGS: Without rales. HEART: Reveals S1, S2. EXTREMITIES: Without edema. LABORATORY DATA: His EKG reveals Q-waves in the inferior leads as well as the anterior precordium, which is unchanged from his previous. His troponins are negative x3. IMPRESSION: 1. Atypical chest pain, which is now resolved. 2. No evidence for acute coronary syndrome. 3. Stable angina. 4. Multivessel percutaneous transluminal coronary angioplasty and stent in the past. 5. Hypercholesterolemia. 6. Borderline hypertension, which is now controlled. PLAN: Given these findings, the patient's cardiac status is stable. No evidence for acute coronary syndrome. The patient can be discharged today. He is scheduled for a stress test on Friday. The patient needs to go to graduation today. Bennett Segura MD
[2017-10-01 11:07] VITALS: RESP 18
--- NOTE | 2017-10-01 12:39 | CP.PCM.DIS ---
<Joey Salas - Last Filed: 10/01/17 13:32> Provider - Provider Date of Admission: 09/30/17 13:40 Attending physician: Siva Gallardo MD Primary care physician: Dr. John Mack Consults: Dr. Segura Time Spent in preparation of Discharge (in minutes): 35 Hospital Course - Lab Results Lab Results: Most Recent Lab Values WBC 10.8 10^3/ul (4.5-11.0) D 09/30/17 12:40 RBC 5.09 10^6/uL (3.5-6.1) 09/30/17 12:40 Hgb 14.0 g/dL (14.0-18.0) 09/30/17 12:40 Hct 41.3 % (42.0-52.0) L 09/30/17 12:40 MCV 81.1 fl (80.0-105.0) 09/30/17 12:40 MCH 27.5 pg (25.0-35.0) 09/30/17 12:40 MCHC 33.9 g/dl (31.0-37.0) 09/30/17 12:40 RDW 15.1 % (11.5-14.5) H 09/30/17 12:40 Plt Count 193 10^3/uL (120.0-450.0) 09/30/17 12:40 MPV 10.0 fl (7.0-11.0) 09/30/17 12:40 Gran % 38.2 % (50.0-68.0) L 09/30/17 12:40 Lymph % (Auto) 51.5 % (22.0-35.0) H 09/30/17 12:40 Turner % (Auto) 5.4 % (1.0-6.0) 09/30/17 12:40 Eos % (Auto) 3.8 % (1.5-5.0) 09/30/17 12:40 Baso % (Auto) 1.1 % (0.0-3.0) 09/30/17 12:40 Gran # 4.11 (1.4-6.5) 09/30/17 12:40 Lymph # (Auto) 5.6 (1.2-3.4) H 09/30/17 12:40 Turner # (Auto) 0.6 (0.1-0.6) 09/30/17 12:40 Eos # (Auto) 0.4 (0.0-0.7) 09/30/17 12:40 Baso # (Auto) 0.12 K/mm3 (0.0-2.0) 09/30/17 12:40 PT 12.4 SECONDS (9.4-12.5) 09/30/17 12:40 INR 1.09 (0.93-1.08) H 09/30/17 12:40 APTT 28.5 Seconds (25.1-36.5) 09/30/17 12:40 Sodium 147 mmol/L (132-148) 09/30/17 12:40 Potassium 3.9 mmol/L (3.6-5.0) 09/30/17 12:40 Chloride 109 mmol/L (98-107) H 09/30/17 12:40 Carbon Dioxide 24 mmol/L (21-33) 09/30/17 12:40 Anion Gap 18 (10-20) 09/30/17 12:40 BUN 22 mg/dL (7-21) H 09/30/17 12:40 Creatinine 1.4 mg/dl (0.8-1.5) 09/30/17 12:40 Est GFR ( Amer) > 60 09/30/17 12:40 Est GFR (Non-Af Amer) 53 09/30/17 12:40 Random Glucose 121 mg/dL (70-110) H 09/30/17 12:40 Hemoglobin A1c 5.9 % (4.2-6.5) 09/30/17 18:48 Calcium 9.7 mg/dL (8.4-10.5) 09/30/17 12:40 Magnesium 1.9 mg/dL (1.7-2.2) 09/30/17 12:40 Total Bilirubin 0.3 mg/dL (0.2-1.3) 09/30/17 12:40 AST 26 U/L (17-59) 09/30/17 12:40 ALT 31 U/L (7-56) 09/30/17 12:40 Alkaline Phosphatase 88 U/L (38-126) 09/30/17 12:40 Lactate Dehydrogenase 460 U/L (333-699) 09/30/17 12:40 Total Creatine Kinase 519 U/L (35-230) H 09/30/17 12:40 CK-MB (CK-2) 4.3 ng/mL (0.0-3.6) H 09/30/17 12:40 CK-MB (CK-2) % Cancelled 09/30/17 12:40 Troponin I < 0.01 ng/mL 09/30/17 23:16 Total Protein 7.7 g/dL (5.8-8.3) 09/30/17 12:40 Albumin 4.5 g/dL (3.0-4.8) 09/30/17 12:40 Globulin 3.2 gm/dL 09/30/17 12:40 Albumin/Globulin Ratio 1.4 (1.1-1.8) 09/30/17 12:40 Triglycerides 201 mg/dL (35-160) H 09/30/17 18:48 Cholesterol 186 mg/dL (130-200) 09/30/17 18:48 LDL Cholesterol Direct 122 mg/dL (0-129) 09/30/17 18:48 HDL Cholesterol 29 mg/dL (29-60) 09/30/17 18:48 Lipase 178 U/L (23-300) 09/30/17 12:40 TSH 3rd Generation 2.03 mIU/mL (0.46-4.68) 09/30/17 18:48 Urine Color Yellow (YELLOW) 09/30/17 20:22 Urine Appearance Clear (CLEAR) 09/30/17 20:22 Urine pH 6.0 (4.7-8.0) 09/30/17 20:22 Ur Specific Gilmer 1.015 (1.005-1.035) 09/30/17 20:22 Urine Protein Negative mg/dL (<30 mg/dL) 09/30/17 20:22 Urine Glucose (UA) Negative mg/dL (NEGATIVE) 09/30/17 20: Urine Ketones Negative mg/dL (NEGATIVE) 09/30/17 20:22 Urine Blood Negative (NEGATIVE) 09/30/17 20:22 Urine Nitrate Negative (NEGATIVE) 09/30/17 20:22 Urine Bilirubin Negative (NEGATIVE) 09/30/17 20:22 Urine Urobilinogen 0.2 E.U./dL (<1 E.U./dL) 09/30/17 20:22 Ur Leukocyte Esterase Negative Tayla/uL (NEGATIVE) 09/30/17 20:22 - Hospital Course Hospital Course: 57 year old male with a past medical history significant for multivessel CAD ( with stent placement in LAD in 2006 and Ramus Intermedius in 08/2016) dyslipidemia, Benign Prostatic Hyperplasia, and a 15 pack year history of smoking (quit one year ago) who presents with substernal chest pain at 10:00 AM today. He reports the pain is pressure like, non-radiating, associated with some difficulty with air intake, without nausea or diapohoresis or worsened with exertion. He reports the pain occurred shortly after he lugged down his Aspirin, Plavix, Pravastatin, and Metoprolol all at once at 10:00. He reports he normally takes his medications after a meal but wasn't able to today. He reports that he drank more water after the chest pain developed, and some gingerale which did not exactly improve his symptoms. He reports the first time he had an PA he had similar symptoms and disregarded it to his regret ion 2006. In the ED, he reports that his chest pain subsided after the topical nitroglycerin patch was applied. He denies any fever, chills, diaphoresis, nausea, vomiting, alcohol, or illicit drug use. Cardiology was consulted and the patient was kept observed overnight. Troponins x3 negative and EKG showed no active ischemia. Patient deferred exercise stress testing secondary to an left lower extremity strain/injury and stated he will perform the test this Friday instead. The patient labs showed a LDL of 122 and he was informed to take his Pravastatin every single day opposed to every other day (as he was before) His hgA1c was 5.9, triglycerides 201, Cholesterol 186, TSH normal. He was not a candidate for high or moderate dose statin therapy secondary to muscle cramps which he experienced. He was discharged with sublingual NG and instructed on how to take it and when to take it (for chest pain). He was reminded to be NPO night for the stress test. - Date & Time of H&P Date of H&P: 10/01/17 Time of H&P: 12:39 Discharge Exam - Head Exam Head Exam: ATRAUMATIC, NORMOCEPHALIC - Eye Exam Eye Exam: EOMI, Normal appearance - ENT Exam ENT Exam: Mucous Membranes Moist, Normal Oropharynx - Neck Exam Neck exam: Normal Inspection - Respiratory Exam Respiratory Exam: Clear to PA & Lateral, NORMAL BREATHING PATTERN. absent: Accessory Muscle Use - Cardiovascular Exam Cardiovascular Exam: RRR, +S1, +S2 - GI/Abdominal Exam GI & Abdominal Exam: Normal Bowel Sounds - Extremities Exam Extremities exam: normal inspection - Neurological Exam Neurological exam: Alert, CN II-XII Intact, Normal Gait, Oriented x3 - Psychiatric Exam Psychiatric exam: Normal Affect, Normal Mood - Skin Skin Exam: Dry, Intact, Normal Color, Warm Discharge Plan - Discharge Medications Prescriptions: Nitroglycerin [Nitrostat] 0.4 mg SL PRN PRN #[id number] tab.subl PRN Reason: chest pain - Follow Up Plan Condition: GOOD Disposition: HOME/ ROUTINE Instructions: Cardiac Stress Test, Heart Healthy Diet, Chest Pain (ED), Chest Pain (DC), Chest Pain (GEN) Additional Instructions: 1) Patient to follow up with PMD within one week. 2) Patient to take Pravastatin 40 mg at bedtime everyday. 3) Patient to return to the ED for any worsening of symptoms. Please be NPO after midnight for stress test here at [facility] on Friday with Dr. Segura. If condition occurs again, go to the nearest emergency room. Diet: Heart healthy diet Patient states he refuses the flu and the pneumococcal vaccines. <Siva Gallardo - Last Filed: 10/01/17 14:40> Provider - Provider Date of Admission: 09/30/17 13:40 Attending physician: Siva Gallardo MD Hospital Course - Lab Results Lab Results: Most Recent Lab Values WBC 10.8 10^3/ul (4.5-11.0) D 09/30/17 12:40 RBC 5.09 10^6/uL (3.5-6.1) 09/30/17 12:40 Hgb 14.0 g/dL (14.0-18.0) 09/30/17 12:40 Hct 41.3 % (42.0-52.0) L 09/30/17 12:40 MCV 81.1 fl (80.0-105.0) 09/30/17 12:40 MCH 27.5 pg (25.0-35.0) 09/30/17 12:40 MCHC 33.9 g/dl (31.0-37.0) 09/30/17 12:40 RDW 15.1 % (11.5-14.5) H 09/30/17 12:40 Plt Count 193 10^3/uL (120.0-450.0) 09/30/17 12:40 MPV 10.0 fl (7.0-11.0) 09/30/17 12:40 Gran % 38.2 % (50.0-68.0) L 09/30/17 12:40 Lymph % (Auto) 51.5 % (22.0-35.0) H 09/30/17 12:40 Turner % (Auto) 5.4 % (1.0-6.0) 09/30/17 12:40 Eos % (Auto) 3.8 % (1.5-5.0) 09/30/17 12:40 Baso % (Auto) 1.1 % (0.0-3.0) 09/30/17 12:40 Gran # 4.11 (1.4-6.5) 09/30/17 12:40 Lymph # (Auto) 5.6 (1.2-3.4) H 09/30/17 12:40 Turner # (Auto) 0.6 (0.1-0.6) 09/30/17 12:40 Eos # (Auto) 0.4 (0.0-0.7) 09/30/17 12:40 Baso # (Auto) 0.12 K/mm3 (0.0-2.0) 09/30/17 12:40 PT 12.4 SECONDS (9.4-12.5) 09/30/17 12:40 INR 1.09 (0.93-1.08) H 09/30/17 12:40 APTT 28.5 Seconds (25.1-36.5) 09/30/17 12:40 Sodium 147 mmol/L (132-148) 09/30/17 12:40 Potassium 3.9 mmol/L (3.6-5.0) 09/30/17 12:40 Chloride 109 mmol/L (98-107) H 09/30/17 12:40 Carbon Dioxide 24 mmol/L (21-33) 09/30/17 12:40 Anion Gap 18 (10-20) 09/30/17 12:40 BUN 22 mg/dL (7-21) H 09/30/17 12:40 Creatinine 1.4 mg/dl (0.8-1.5) 09/30/17 12:40 Est GFR ( Amer) > 60 09/30/17 12:40 Est GFR (Non-Af Amer) 53 09/30/17 12:40 Random Glucose 121 mg/dL (70-110) H 09/30/17 12:40 Hemoglobin A1c 5.9 % (4.2-6.5) 09/30/17 18:48 Calcium 9.7 mg/dL (8.4-10.5) 09/30/17 12:40 Magnesium 1.9 mg/dL (1.7-2.2) 09/30/17 12:40 Total Bilirubin 0.3 mg/dL (0.2-1.3) 09/30/17 12:40 AST 26 U/L (17-59) 09/30/17 12:40 ALT 31 U/L (7-56) 09/30/17 12:40 Alkaline Phosphatase 88 U/L (38-126) 09/30/17 12:40 Lactate Dehydrogenase 460 U/L (333-699) 09/30/17 12:40 Total Creatine Kinase 519 U/L (35-230) H 09/30/17 12:40 CK-MB (CK-2) 4.3 ng/mL (0.0-3.6) H 09/30/17 12:40 CK-MB (CK-2) % Cancelled 09/30/17 12:40 Troponin I < 0.01 ng/mL 09/30/17 23:16 Total Protein 7.7 g/dL (5.8-8.3) 09/30/17 12:40 Albumin 4.5 g/dL (3.0-4.8) 09/30/17 12:40 Globulin 3.2 gm/dL 09/30/17 12:40 Albumin/Globulin Ratio 1.4 (1.1-1.8) 09/30/17 12:40 Triglycerides 201 mg/dL (35-160) H 09/30/17 18:48 Cholesterol 186 mg/dL (130-200) 09/30/17 18:48 LDL Cholesterol Direct 122 mg/dL (0-129) 09/30/17 18:48 HDL Cholesterol 29 mg/dL (29-60) 09/30/17 18:48 Lipase 178 U/L (23-300) 09/30/17 12:40 TSH 3rd Generation 2.03 mIU/mL (0.46-4.68) 09/30/17 18:48 Urine Color Yellow (YELLOW) 09/30/17 20:22 Urine Appearance Clear (CLEAR) 09/30/17 20:22 Urine pH 6.0 (4.7-8.0) 09/30/17 20:22 Ur Specific Gilmer 1.015 (1.005-1.035) 09/30/17 20:22 Urine Protein Negative mg/dL (<30 mg/dL) 09/30/17 20:22 Urine Glucose (UA) Negative mg/dL (NEGATIVE) 09/30/17 20:22 Urine Ketones Negative mg/dL (NEGATIVE) 09/30/17 20:22 Urine Blood Negative (NEGATIVE) 09/30/17 20:22 Urine Nitrate Negative (NEGATIVE) 09/30/17 20:22 Urine Bilirubin Negative (NEGATIVE) 09/30/17 20:22 Urine Urobilinogen 0.2 E.U./dL (<1 E.U./dL) 09/30/17 20:22 Ur Leukocyte Esterase Negative Tayla/uL (NEGATIVE) 09/30/17 20:22 Attending/Attestation - Attestation I have personally seen and examined this patient.: Yes I have fully participated in the care of the patient.: Yes I have reviewed all pertinent clinical information, including history, physical exam and plan: Yes Notes (Text): 10/01/17 14:38 Medical record note made by the resident after discussion with my direction and input after the patient was personally seen and examined by me. I have reviewed the chart and agree that the record accurately reflects by personal performance of the history, physical exam, data review, and medical decision-making, in the course for the patient. I have also personally directed the plan of care. 57 year old male with a past medical history of CAD ,SP stent placement in LAD in 2006 and Ramus Intermedius in 08/2016) dyslipidemia, Benign Prostatic Hyperplasia, was admitted with chest pain, improved with topical nitropaste in ER.EKG was negative for any new changes compared to previous EKG.Patient was admitted to the hospital in telemetry.Serial troponins are normal.Patient was evaluated by cardiology.He is scheduled for stress test on 10/03/17, does not want to have it done inpatient at this time.He was given prescription of SL Nitroglycerine at the time of discharge. Management plan was discussed in detail with patient. Education was provided.
== END 2017-10-01 11:47 | disposition home or self-care (01) ==
LOC: ED 12:22 → ERH 13:40 → 2RSO 15:56
PROVIDERS: ADMIT Internal Medicine; ATTEND Internal Medicine
DX: R07.89 Other chest pain (principal); I25.118 Atherosclerotic heart disease of native coronary artery with other forms of angina pectoris; N40.0 Benign prostatic hyperplasia without lower urinary tract symptoms; J44.9 Chronic obstructive pulmonary disease, unspecified; E78.00 Pure hypercholesterolemia, unspecified; N18.9 Chronic kidney disease, unspecified; I25.2 Old myocardial infarction; Z95.5 Presence of coronary angioplasty implant and graft; Z87.891 Personal history of nicotine dependence; Z79.02 Long term (current) use of antithrombotics/antiplatelets; Z79.82 Long term (current) use of aspirin
CPT/HCPCS: 71045; 80053; 80061; 81003; 82550; 82553; 83036; 83615; 83690; 83735; 84443; 84484; 85025; 85610; 85730; 93005; 96372; 99285; G0378; J1650; J7040